=== PATIENT | female | born 1965 | race Caucasian/White ===

== ENCOUNTER 2020-01-27 15:40 | Emergency (ER) | payer MEDICAID, SELFPAY ==
[2020-01-27 15:42] VITALS: BP 161/91; PULSE 109; RESP 18; TEMP 36.2; O2SAT 100; BMI 31.3
--- NOTE | 2020-01-27 16:49 | ED.VIS.GEN ---
History of Present Illness Chief Complaint: Lower Extremity Injury Informant: Patient Narrative: Patient states that about 4 to 5 days ago she began to experience swelling of the left leg. She had a duplex ultrasound today that demonstrated a common femoral DVT. She was sent to the emergency room for a prescription of anticoagulant. She has never had DVT before. She denies any significant medical problems. She notes she has had a cough but recently tested negative for Covid. She has no known renal or liver issues. She has no known risk factors for DVT. Past Medical History - Allergies and Home Meds Allergies/Adverse Reactions: Allergies No Known Allergies Allergy (Verified 11/14/18 08:11) Primary Care Physician: Emi Brennan DO [Primary Care Provider] - Past Medical History: None Surgical History: noncontributory Smoking Status: Never smoker Drugs: None Review of Systems General: Denies: Chills, Fever, Sweats Eyes: Denies: Visual changes - bilaterally, Diplopia ENT: Denies: Rhinorrhea, Sore throat Cardiovascular: Denies: Chest pain, Palpitations Respiratory: Denies: Dyspnea, Cough, Dyspnea on exertion Gastrointestinal: Denies: Abdominal pain, Nausea, Vomiting, Diarrhea, Melena, Hematochezia Genitourinary: Denies: Dysuria, Hematuria, Frequency Musculoskeletal: Reports: Swelling, Extremity Pain. Denies: Back pain Skin: Denies: Rash, Wounds Neurological: Denies: Headache, Weakness, Numbness Physical Exam Vital Signs/Narrative: Vital Signs Temp Pulse Resp BP Pulse Ox 01/27/20 15:42 97.2 F L 109 H 18 161/91 H 100 Inital Vital Signs reviewed: Yes General: Well nourished, Well developed, No Acute Distress Head: Normocephalic, Atraumatic Eyes: Perrl, EOMI ENT: Moist mucous membranes, No rhinorrhea Neck: Supple, Nontender Cardiovascular: Regular rate, Regular rhythm, No murmurs Respiratory: No distress, CTA bilaterally, Chest nontender Abdomen: Soft, Nontender, Nondistended, Normal bowel sounds Back: Nontender, Normal Inspection Extremities: Tenderness, Edema - Of the left leg. No evidence of cerulea Rik's or albicans. Strong dorsalis pedis pulse. Toes are pink with excellent capillary refill Skin: Normal color, No rash Neurological: Alert, Oriented x3, Cranial nerves II-XII grossly intact, Normal Strength, Normal Sensation Psychological: Normal affect, Normal Mood Diagnostic/Tx/Re-eval - Medical Decision Making Patient will be started on Eliquis. She can follow-up in the office. ED Disposition - Plan for ED Patient: Disposition: Home or Assisted Living Diagnosis: Left leg DVT Instructions: ED DVT Prescriptions: Apixaban [Eliquis] 5 mg PO BID #74 tab Prescription Printed Referrals: Fast,Emi, DO [Primary Care Provider] - As soon as possible
== END 2020-01-27 17:18 | disposition home or self-care (01) ==
LOC: ED 17:18
PROVIDERS: Emergency Provider Emergency Medicine
DX: I82.402 Acute embolism and thrombosis of unspecified deep veins of left lower extremity (principal)
CPT/HCPCS: 99282

== ENCOUNTER → 2020-02-05 14:12 | Outpatient (CLI) | payer MEDICAID, SELFPAY ==
[2020-01-27 15:42] VITALS: BMI 31.3
--- NOTE | 2020-02-05 14:16 | US_ITS ---
STUDY: ULTRASOUND OF THE FEMALE PELVIS - COMPLETE REASON FOR EXAM: Female, 54 years old. HEAVY BLEEDING LMP: 01/02/2020 TECHNIQUE: Transabdominal TECHNICAL QUALITY: Adequate. COMPARISON: None. FINDINGS: The uterus is anteverted and is in a midline position. The uterus measures 9.5 x 7.8 x 6.2 cm. Normal uterine cervix. The endometrium measures 4.3 mm in thickness, and is hyperechoic. There is no demonstrated endometrial mass. 2 fibroids are seen measuring 4.0 and 4.1 cm greatest dimension. I.U.D. - The patient does not have an I.U.D. The right ovary is non-visualized. The left ovary is visualized. The left ovary measures 2.3 x 2.1 x 1.7 cm. There is no left ovarian cyst or ovarian mass. There is no visualized left adnexal mass or complex lesion. There is normal arterial and normal venous vascularity. There is no fluid in the cul-de-sac. Grossly normal bladder contour. US/Pelvic (Non ) IMPRESSION: At least 2 uterine fibroids approximately 4 cm greatest dimension. Electronically Signed: Adarsh Ortiz MD at 23:22 EST , Service support ,
[2020-02-05 17:20] LABS: Absolute Lymphocyte Count 1.77 X10^3/uL (0.83-4.51); Absolute Neutrophil Count 4.5 X10^3/uL (2.0-7.7); Basophil# 0.04 X10^3/uL; Basophil% 0.5 % (0-1); Eosinophil# 0.44 X10^3/uL; Eosinophils% 5.7 % (0-5); Hematocrit 26.8 % (37-47); Hemoglobin 6.9 g/dL (12.0-15.0); Lymphocyte # 1.77 X10^3/ul (4.0); Mean Corp Hgb Conc 25.7 g/dL (32-36); Mean Corpuscular Hgb 16.7 pg (27.0-32.0); Mean Corpuscular Volume 64.7 fL (81-99); Mean Platelet Vol. 10.5 fl (6.2-12.0); Monocyte# 0.82 X10^3/uL; Monocyte% 10.6 % (0-10); NRBC Flagged by Analyzer 0 % (0-5); Neutrophil # 4.54 X10^3/uL (2.7-7.7); POSITIVE COUNT YES; RBC Distribution Width CV 19.9 % (11.6-14.6); RBC Distribution Width SD 44.6 fl (35.1-43.9); Red Blood Count 4.14 M/mm3 (4.2-5.4); White Blood Count 7.7 K/mm3 (4.4-11.0)
[2020-02-05 17:37] LABS: Differential Indicated SCAN CRITERIA MET
[2020-02-05 17:45] LABS: ALB/GLOB Ratio 0.6 RATIO (0.9-2.4); AST(SGOT) 16 U/L (15-37); Alanine Aminotransfer ALT/SGPT 20 U/L (13-56); Albumin, Serum 2.8 g/dL (3.2-5.0); Alkaline Phosphatase 62 U/L (45-117); Anion Gap 6 (5-15); BUN 18 mg/dL (7-18); BUN/Creat Ratio 27.2 RATIO (10-20); Calcium,Total 8.9 mg/dL (8.5-10.1); Chloride 105 mmol/L (98-107); Creatinine, Serum 0.66 mg/dL (0.55-1.02); EST Glomerular Filtration Rate 100 mL/min (>60); Est Glom Filt Rate - Afr Amer 121 mL/min (>60); Glucose 84 mg/dL (74-106); Potassium 3.8 mmol/L (3.5-5.1); Protein, Total 7.8 g/dL (6.4-8.2); Sodium Level 138 mmol/L (136-145)
[2020-02-05 18:12] LABS: Anisocytosis 2+; Platelet Estimate MKD INC (ADEQ)
[2020-02-05 18:13] LABS: Hypochromasia 2+; Polychromasia RARE
[2020-02-05 18:14] LABS: Microcytosis 3+; Ovalocyte 1+
[2020-02-05 18:53] LABS: Platelet Count 755 K/mm3 (150-450)
[2020-02-06 12:53] LABS: Pathologist Review Reviewed
== END ==
PROVIDERS: Referring Provider Internal Medicine; Visit Provider Internal Medicine
DX: N92.0 Excessive and frequent menstruation with regular cycle (principal); I82.409 Acute embolism and thrombosis of unspecified deep veins of unspecified lower extremity
CPT/HCPCS: 36415; 76856; 80053; 81241; 85025

== ENCOUNTER 2020-02-10 10:05 | Emergency (ER) | payer MEDICAID, SELFPAY ==
[2020-02-10 10:06] VITALS: BP 164/97; PULSE 97; RESP 16; TEMP 36.4; O2SAT 100; BMI 30.4
--- NOTE | 2020-02-10 10:22 | VDLE_ITS ---
Reason For Study: Pain RIGHT LEFT GSV is normal. Acute deep vein thrombosis is noted in the CFV is compressible, spontaneous, phasic, left EIV, CFV, SFJ, FV, PopV, T/P Trunk, competent and demonstrates normal PTV, PeroV and GastrocV. augmentation. Acute superficial cade thrombosis is noted FV is compressible, spontaneous, phasic, in the left GSV from junction to mid thigh. competent and demonstrates normal augmentation. POP V is compressible, spontaneous, phasic, competent and demonstrates normal augmentation. T/P Trunk is compressible. PTV is compressible. RT PerV is compressible. Procedure This is a venous duplex using B-mode, color flow and spectral Doppler. Exam performed portable in ED. A preliminary report was called and/or faxed to [facility]. Interpretation Summary There is no evidence of right lower extremity deep vein thrombosis. Right great saphenous vein appears patent and compressible segmentally. Acute deep venous thrombosis left external iliac, common femoral, saphenofemoral junction, femoral, popliteal, tibioperoneal trunk, posterior tibial, peroneal, and gastrocnemius veins. Superficial thrombophlebitis left great saphenous vein Ordering Physician: Richard Pond Referring Physician: Emi Brennan D.O. Performed By: Jessy Fairbanks RVT
[2020-02-10 10:57] LABS: Absolute Lymphocyte Count 2.32 X10^3/uL (0.83-4.51); Absolute Neutrophil Count 4.4 X10^3/uL (2.0-7.7); Basophil# 0.04 X10^3/uL; Basophil% 0.5 % (0-1); Eosinophil# 0.34 X10^3/uL; Eosinophils% 4.3 % (0-5); Hematocrit 27.1 % (37-47); Hemoglobin 7.1 g/dL (12.0-15.0); Lymphocyte # 2.32 X10^3/ul (4.0); Mean Corp Hgb Conc 26.2 g/dL (32-36); Mean Corpuscular Hgb 16.8 pg (27.0-32.0); Mean Corpuscular Volume 64.1 fL (81-99); Mean Platelet Vol. 10.2 fl (6.2-12.0); Monocyte# 0.82 X10^3/uL; Monocyte% 10.3 % (0-10); NRBC Flagged by Analyzer 0.3 % (0-5); Neutrophil # 4.43 X10^3/uL (2.7-7.7); Neutrophil % 55.4 % (47-70); Platelet Count 738 K/mm3 (150-450); RBC Distribution Width CV 19.9 % (11.6-14.6); RBC Distribution Width SD 43.7 fl (35.1-43.9); Red Blood Count 4.23 M/mm3 (4.2-5.4)
[2020-02-10 11:01] LABS: International Normalized Ratio 1.4; Prothrombin Time (Protime)PT. 16.4 SECONDS (11.7-14.9)
[2020-02-10 11:03] LABS: Partial Thromboplast Time 29.4 Seconds (24.1-36.2)
[2020-02-10 11:09] LABS: Anion Gap 7 (5-15); BUN 13 mg/dL (7-18); BUN/Creat Ratio 16.1 RATIO (10-20); Calcium,Total 9.6 mg/dL (8.5-10.1); Chloride 107 mmol/L (98-107); Creatinine, Serum 0.81 mg/dL (0.55-1.02); EST Glomerular Filtration Rate 79 mL/min (>60); Est Glom Filt Rate - Afr Amer 96 mL/min (>60); Estimated Creatinine Clearance 87.85 ml/min; Glucose 116 mg/dL (74-106); Potassium 4.1 mmol/L (3.5-5.1); Sodium Level 140 mmol/L (136-145)
[2020-02-10 12:06] VITALS: BP 110/84; PULSE 93; RESP 16; O2SAT 100
--- NOTE | 2020-02-10 12:09 | ED.VISSUMM ---
- ER Visit Summary Date of Service: 02/10/20 Chief Complaint: Anemia History of Present Illness: The patient is a [address] [facility] She is a poor informant. She reports that she has vaginal bleeding. However, she is unsure when this started. She reports that currently she is changing a pad every 1-2 hours and and does not soak. She has a history of a DVT and is on Eliquis. Her last dose was this morning. Review of systems: General: No fever, chills, cold sweats. Cardiovascular: No chest pain, palpitations. Respiratory: No cough, shortness of breath, dyspnea on exertion. Gastrointestinal: No abdominal pain, nausea, vomiting, diarrhea, melena, or hematochezia. Genitourinary: No dysuria, frequency, hematuria. Skin: No rash. Neuro: No headache, numbness, weakness. Physical Examination: Vitals: Stable. Afebrile. General: Well-nourished and well-developed. Head: Normocephalic atraumatic. Neck: Supple, no lymphadenopathy. No JVD. Nontender. Cardiovascular: Regular rate and rhythm. No murmurs. Respiratory: No respiratory distress. Clear to auscultation bilaterally. Abdominal: Soft, nontender, nondistended, normal bowel sounds. No guarding, rebound, or peritoneal signs. Back: Nontender. Extremities: Nontender, no edema. Skin: Normal color, no rash. Neurologic: Alert and oriented ?3. Cranial nerves II through XII are intact. Normal strength and sensation. Psych: Normal affect. Test Results: INR is 1.4 with PTT of 29.4. Chem-7 shows a glucose 116. CBC shows a hemoglobin of 7.1 (her hemoglobin 6.92 days ago and no other old for comparison), platelets are 738. Chem-7 shows glucose 116. Bilateral lower extremity Doppler ultrasound show her to have an acute DVT from the thigh to the ankle on the left. Emergency Department Course and Treatment: Patient is resting comfortably and feels well. Treatment Plan: Patient was discussed with the hospitalist. At this time they do not think that she needs to be transfused or admitted. She was discussed with Dr. Gaby Waldrop who states that she will see in the office today. She will be placed on Aygestin 5 mg p.o. 4 times daily. Return to the emergency department for any worsening symptoms. Disposition: To home in improved and stable condition. Impression: 1. Anemia. 2. Vaginal bleeding on Eliquis. 3. DVT on left. This note was generated with [employer] dictation software. It may contain incorrect words, spelling, and punctuation that were not noted in review of the chart prior to signing ED Disposition - Plan for ED Patient: Disposition: Home or Assisted Living Instructions: ED FIBROIDS Prescriptions: Norethindrone [Aygestin] 5 mg PO 4X/DAY 3 Days #12 tab Prescription Printed Referrals: Gaby Waldrop MD [STAFF PHYSICIAN] - 02/10/20
[2020-02-10 12:26] VITALS: BP 110/72; PULSE 79; RESP 22; O2SAT 97
--- NOTE | 2020-02-10 12:27 | ED.RN ---
THIS NURSE REVIEWED D/C INSTRUCTIONS WITH PT. PT VERBALIZED UNDERSTANDING OF INSTRUCTIONS. IV D/C. IV CATHETER INTACT. PT TOLERATED WELL. PT DENIES FURTHER NEEDS OR QUESTIONS AT THIS TIME. PT CONTACTING HER RIDE.
== END 2020-02-10 12:29 | disposition home or self-care (01) ==
PROVIDERS: Emergency Provider Emergency Medicine
DX: D64.9 Anemia, unspecified (principal); N93.9 Abnormal uterine and vaginal bleeding, unspecified; Z79.01 Long term (current) use of anticoagulants; Z86.718 Personal history of other venous thrombosis and embolism
CPT/HCPCS: 80048; 85025; 85610; 85730; 86850; 86900; 86901; 86920; 86922; 93970; 99283; A4216

== ENCOUNTER 2020-05-08 19:07 | Emergency (ER) | payer MEDICAID, SELFPAY ==
[2020-05-08 19:07] VITALS: BP 151/64; PULSE 85; RESP 16; TEMP 36.2; O2SAT 100; BMI 33.5
--- NOTE | 2020-05-08 19:52 | NURSING ---
Patient tolerated pelvic exam well with distraction by this nurse while provider completed evaluation. Two pads given to patient, upon completion.
--- NOTE | 2020-05-08 20:06 | ED.DCSUM_ITS ---
History of Present Illness Chief Complaint: Vag Bleeding Informant: Patient Issue: Vaginal bleeding, Passing clots Narrative: Patient is a 54-year-old female with history of DVT and abnormal vaginal bleeding presenting with heavy vaginal bleeding. Patient states that she was recently taken off of a white pill as well as Eliquis. Patient was on Eliquis for DVT. She followed up with hematology and the DVT had resolved so she was taken off of it. She states that she has an enlarged uterus and gets heavy vaginal bleeding. She was taken off these medications 1 week ago. 3 days ago she started having bright heavy vaginal bleeding. The patient brought in shows that the medication was likely Aygestin. She tried to get a hold of her REHABILITATION MANAGER, about getting a refill of the Aygestin to help with her heavy vaginal bleeding but was unsuccessful so she came to the ER. Patient denies any lightheadedness, chest pain, abdominal pain or pelvic cramping. She states she is wearing 2 pads at a time. She states she is passing clots of blood. She denies any urinary symptoms. No other complaints at this time. Past Medical History - Allergies and Home Meds Allergies/Adverse Reactions: Allergies No Known Allergies Allergy (Verified 05/08/20 19:10) Primary Care Physician: Care Physician,No Primary [NON-STAFF] - Past Medical History: - - Depression, GERD, history of DVT, irregular vaginal bleeding Surgical History: noncontributory Lives: Spouse/ Significant Other Smoking Status: Former smoker Review of Systems General: Denies: Chills, Fever, Sweats Eyes: Denies: Visual changes - bilaterally, Diplopia ENT: Denies: Rhinorrhea, Sore throat Cardiovascular: Denies: Chest pain, Palpitations Respiratory: Denies: Dyspnea, Cough, Dyspnea on exertion Gastrointestinal: Denies: Abdominal pain, Nausea, Vomiting, Diarrhea, Melena, Hematochezia Genitourinary: Reports: - - Heavy vaginal bleeding. Denies: Dysuria, Hematuria, Frequency Musculoskeletal: Denies: Back pain, Extremity Pain Skin: Denies: Rash, Wounds Neurological: Denies: Headache, Weakness, Numbness Physical Exam Vital Signs/Narrative: Vital Signs Temp Pulse Resp BP Pulse Ox 05/08/20 19:07 97.2 F L 85 16 151/64 H 100 Inital Vital Signs reviewed: Yes General: Well nourished, Well developed Head: Normocephalic, Atraumatic Eyes: Perrl, EOMI. Negative for: Pale conjunctiva ENT: Moist mucous membranes, No rhinorrhea Neck: Supple, Nontender Cardiovascular: Regular rate, Regular rhythm, No murmurs Respiratory: No distress, CTA bilaterally, Chest nontender Abdomen: Soft, Nontender, Nondistended, Normal bowel sounds : Speculum exam: Normal external genitalia, No vaginal lesions, No vaginal discharge, Normal cervix, Mild active bleeding, Small clots Back: Nontender, Normal Inspection Extremities: Nontender, No edema Skin: Normal color, No rash. Negative for: Pallor Neurological: Alert, Oriented x3, Cranial nerves II-XII grossly intact, Normal Strength, Normal Sensation Psychological: Normal affect Diagnostic/Tx/Re-eval - Medical Decision/Diagnostic Studies Patient is evaluated for irregular vaginal bleeding. Patient is requesting Aygestin which she is taking in the past to help with her abnormal vaginal bleeding. She denies any symptoms consistent with anemia. She denies any significant abdominal pain. She has no other complaints. She has normal vital signs is ambulating easily in the emergency room. I do not think checking lab work is indicated at this time. Spoke to gynecology on-call, Dr. Geronimo, who is comfortable with starting her on a short course of Aygestin. This is a progesterone only medication so this should not increase her risk of DVTs as she is currently off Eliquis. Patient will follow up with her silo operator and phone technician. Patient is counseled on signs and symptoms requiring return to the emergency room. Patient verbalizes agreement and understand this plan. Patient discharged home in stable and improved condition. ED Disposition - Plan for ED Patient: Disposition: Home or Assisted Living Diagnosis: Abnormal vaginal bleeding Instructions: ED Dysfunctional Uterine Bleeding Prescriptions: Norethindrone [Aygestin] 5 mg PO BID 5 Days #12 tab Prescription Printed Referrals: Toshia Nicole DO [Primary Care Provider] -
[2020-05-08 20:23] VITALS: BP 132/78; PULSE 72; RESP 19; TEMP 37.1; O2SAT 98
== END 2020-05-08 20:24 | disposition home or self-care (01) ==
PROVIDERS: Emergency Provider Emergency Medicine; PCP Student in an Organized Health Care Education/Training Program
DX: N93.9 Abnormal uterine and vaginal bleeding, unspecified (principal); Z86.718 Personal history of other venous thrombosis and embolism; Z87.891 Personal history of nicotine dependence; Z79.02 Long term (current) use of antithrombotics/antiplatelets
CPT/HCPCS: 99282

== ENCOUNTER 2020-05-17 20:54 | Emergency (ER) | payer MEDICAID, SELFPAY ==
[2020-05-17 20:55] VITALS: BP 141/94; PULSE 100; RESP 18; TEMP 36.4; O2SAT 98; BMI 33.2
--- NOTE | 2020-05-17 21:41 | ED.VISSUMM ---
- ER Visit Summary Date of Service: 05/17/20 Chief Complaint: Vaginal bleeding History of Present Illness: The patient is a 54 F presenting with vaginal bleeding. Patient states she has history of heavy vaginal periods. She was seen in the ED 9 days ago. She states at that time she was started on a white pill. She states that she has been given this in the past to stop her periods. She was diagnosed with a DVT several months ago and was on Eliquis. When she was on Eliquis she was having increased heavy vaginal bleeding. She was taken off Eliquis due to heavy vaginal bleeding. She states when she has heavy vaginal bleeding she needs the white pill. She states she was given this last week in the emergency department and not has now run out of this medication and has now started bleeding again. She denies dizziness or syncope. Denies abdominal pain. Denies other complaints. Physical Examination: Vitals are stable. Patient is afebrile. Alert no acute distress. HEENT exam is unremarkable. Neck is supple. Lungs are clear and equal bilaterally. Heart is regular rate and rhythm. Abdomen is soft nontender nondistended. No guarding or rebound Pelvic: Small amount of blood in vaginal vault, cleared with cotton swab. Extremities are unremarkable. Skin is warm and dry. Remainder of exam is unremarkable. Emergency Department Course and Treatment: CBC shows white count 12, hemoglobin 9.1. Orthostatics negative. hCG negative. Discussed with Dr. Geronimo. Patient has a scheduled appointment on Monday with AIR DIRECTOR in [place] to discuss possible hysterectomy. She was started back on Aygestin to get her through until this appointment. She is advised signs and symptoms for which to return to the ED. Disposition: Discharge home Impression: Dysfunctional uterine bleeding This note was generated with [employer] dictation software. It may contain incorrect words, spelling, and punctuation that were not noted in review of the chart prior to signing ED Disposition - Plan for ED Patient: Instructions: ED Dysfunctional Uterine Bleeding Prescriptions: Norethindrone [Aygestin] 5 mg PO BID 5 Days #12 tab Prescription Printed Referrals: Toshia Nicole DO [Primary Care Provider] -
[2020-05-17 21:45] LABS: Absolute Lymphocyte Count 2.09 X10^3/uL (0.83-4.51); Basophil# 0.11 X10^3/uL; Basophil% 0.9 % (0-1); Eosinophil# 0.34 X10^3/uL; Eosinophils% 2.8 % (0-5); Hematocrit 33.8 % (37-47); Hemoglobin 9.1 g/dL (12.0-15.0); Lymphocyte # 2.09 X10^3/ul (4.0); Lymphocyte % 17.4 % (19-41); Mean Corp Hgb Conc 26.9 g/dL (32-36); Mean Corpuscular Hgb 18.6 pg (27.0-32.0); Mean Corpuscular Volume 69.1 fL (81-99); Mean Platelet Vol. 9.7 fl (6.2-12.0); Monocyte# 1.36 X10^3/uL; Monocyte% 11.3 % (0-10); NRBC Flagged by Analyzer 0 % (0-5); Neutrophil # 8.03 X10^3/uL (2.7-7.7); Neutrophil % 66.9 % (47-70); POSITIVE MORPHOLOGY YES; Platelet Count 480 K/mm3 (150-450); RBC Distribution Width SD 70.1 fl (35.1-43.9); Red Blood Count 4.89 M/mm3 (4.2-5.4)
[2020-05-17 21:52] LABS: Differential Indicated SCAN CRITERIA MET
[2020-05-17 21:56] LABS: Internal QC Validated? YES +Cl - CLEAR BKGD; Pregnancy, Serum, hCG Quali. NEGATIVE Negative
[2020-05-17 22:12] LABS: Anisocytosis 2+
[2020-05-17 22:17] VITALS: BP 114/69; BP 118/80; BP 132/85; PULSE 115; PULSE 99
--- NOTE | 2020-05-17 22:23 | ED.DEP ---
ED Disposition - Plan for ED Patient: Instructions: ED Dysfunctional Uterine Bleeding Prescriptions: Norethindrone [Aygestin] 5 mg PO BID 5 Days #12 tab Prescription Printed Referrals: Toshia Nicole DO [Primary Care Provider] -
[2020-05-17 22:36] VITALS: BP 118/65; PULSE 99; RESP 18; O2SAT 100
--- NOTE | 2020-05-17 22:36 | ED.RN ---
ATTEMPTED TO FILL MEDS TO BEDS, WE DO NOT HAVE THIS RX AVAILABLE. PT AWARE AND WILL FILL IT IN AM.
== END 2020-05-17 22:37 | disposition home or self-care (01) ==
LOC: ED 22:31
PROVIDERS: Emergency Provider Emergency Medicine; PCP Student in an Organized Health Care Education/Training Program
DX: N93.8 Other specified abnormal uterine and vaginal bleeding (principal); Z86.718 Personal history of other venous thrombosis and embolism
CPT/HCPCS: 84703; 85025; 99283

== ENCOUNTER → 2020-06-25 14:48 | Outpatient (CLI) | payer MEDICAID, SELFPAY ==
--- NOTE | 2020-06-25 14:50 | VDLE_ITS ---
Reason For Study: DVT RIGHT LEFT GSV is normal. Vein wall thickening is noted in the EIV, CFV is compressible, spontaneous, phasic, CFV, and FV. competent and demonstrates normal POP V, T/P Trunk and Gastroc V are partially augmentation. compressible. FV is compressible, spontaneous, phasic, PTV, Peroneal V, and GSV are now competent and demonstrates normal compressible. Improvement from previous study augmentation. done 02/10/2020. POP V is compressible, spontaneous, phasic, competent and demonstrates normal augmentation. T/P Trunk is compressible. PTV is compressible. RT PerV is compressible. Procedure This is a venous duplex using B-mode, color flow and spectral Doppler. The exam was diagnostic. A preliminary report was called and/or faxed to Lov[facility] at Dr. Quinteros's. VL/Venous Duplex US - Shaan Extrem Interpretation Summary There is no evidence of right lower extremity deep vein thrombosis. Chronic thr ombotic changes left external iliac, common femoral, femoral, popliteal, tibioperoneal trunk and gas trocnemius veins Patent, compressible left posterior tibial and peroneal veins. Patent and compressible bilateral great saphenous veins Improvement since 02/10/20 Ordering Physician: Esteban Quinteros Performed By: Masood Henson RVT
== END ==
PROVIDERS: Referring Provider Internal Medicine Hematology & Oncology; Visit Provider Internal Medicine Hematology & Oncology
DX: I82.409 Acute embolism and thrombosis of unspecified deep veins of unspecified lower extremity (principal)
CPT/HCPCS: 93970

== ENCOUNTER → 2020-09-18 09:55 | Outpatient (CLI) | payer MEDICAID, SELFPAY ==
--- NOTE | 2020-09-18 09:58 | VDLE_ITS ---
Reason For Study: Leg swelling RIGHT LEFT GSV is normal. CFV, FV, Pop V, T/P Trunk are partially CFV is compressible, spontaneous, phasic, compressible with bright intraluminal echoes competent and demonstrates normal consistent with Chronic DVT. augmentation. PTV, Peroneal V, and GSV are compressible. FV is compressible, spontaneous, phasic, Compared to previous study done 06/25/2020. competent and demonstrates normal augmentation. POP V is compressible, spontaneous, phasic, competent and demonstrates normal augmentation. T/P Trunk is compressible. PTV is compressible. RT PerV is compressible. Procedure This is a venous duplex using B-mode, color flow and spectral Doppler. Exam performed in department. A preliminary report was called and/or faxed to [facility]. VL/Venous Duplex US - Shaan Extrem Interpretation Summary Chronic venous changes are noted in the left common femoral vein, femoral vein, popliteal vein, and tibio-peroneal trunk, which are partially compressible and demonstrate bright i ntraluminal echogenicity.The left posterior tibial vein and peroneal vein are patent and co mpressible. Deep veins of the right lower extremity are patent and compressible segmentally. The re is no evidence of right lower extremity deep vein thrombosis. Valvular competence appears intact within the proximal deep venous system on the right . The great saphenous veins appear bilaterally patent and compressible segmentally. Ordering Physician: Esteban Quinteros Performed By: Jessy Fairbanks RVT
== END ==
PROVIDERS: Referring Provider Internal Medicine Hematology & Oncology; Visit Provider Internal Medicine Hematology & Oncology
DX: R60.0 Localized edema (principal); I82.409 Acute embolism and thrombosis of unspecified deep veins of unspecified lower extremity
CPT/HCPCS: 93970

== ENCOUNTER → 2022-04-20 | Outpatient (CLI) | payer MEDICAID, SELFPAY ==
[2022-04-20 11:34] LABS: Hematocrit 45.1 % (37-47); Hemoglobin 14.7 g/dL (12.0-15.0); Mean Corp Hgb Conc 32.6 g/dL (32-36); Mean Corpuscular Hgb 28.2 pg (27.0-32.0); Mean Corpuscular Volume 86.4 fL (81-99); Mean Platelet Vol. 10.8 fl (6.2-12.0); Platelet Count 229 K/mm3 (150-450); RBC Distribution Width CV 13.7 % (11.6-14.6); RBC Distribution Width SD 42.4 fl (35.1-43.9); Red Blood Count 5.22 M/mm3 (4.2-5.4); White Blood Count 6.5 K/mm3 (4.4-11.0)
[2022-04-20 12:10] LABS: ALB/GLOB Ratio 0.8 RATIO (0.9-2.4); AST(SGOT) 40 U/L (15-37); Alanine Aminotransfer ALT/SGPT 31 U/L (13-56); Albumin, Serum 3.7 g/dL (3.2-5.0); Alkaline Phosphatase 103 U/L (45-117); Anion Gap 6 (5-15); BUN 11 mg/dL (7-18); BUN/Creat Ratio 13.7 RATIO (10-20); Calcium,Total 9.5 mg/dL (8.5-10.1); Chloride 106 mmol/L (98-107); EST Glomerular Filtration Rate 79 mL/min (>60); Est Glom Filt Rate - Afr Amer 96 mL/min (>60); Globulin 4.9 g/dL (2.2-4.2); Glucose 97 mg/dL (74-106); Potassium 4.9 mmol/L (3.5-5.1); Protein, Total 8.6 g/dL (6.4-8.2); Sodium Level 141 mmol/L (136-145)
== END | disposition home or self-care (01) ==
LOC: LAB 11:17
PROVIDERS: Visit Provider Nurse Practitioner Family
DX: M19.90 Unspecified osteoarthritis, unspecified site (principal); Z86.718 Personal history of other venous thrombosis and embolism
CPT/HCPCS: 36415; 80053; 85027

== ENCOUNTER → 2022-10-26 | Outpatient (CLI) | payer MEDICAID, SELFPAY ==
--- NOTE | 2022-10-26 14:46 | BI_ITS ---
MAMMOGRAPHY - BILATERAL SCREENING REASON FOR EXAM: Female, 57 years old. Routine annual screening examination. PERTINENT HISTORY: Non-contributory. TECHNIQUE: Digital bilateral breast [place] (3D mammographic acquisition) in the CC and MLO projections. 2-D mediolateral oblique (MLO) and craniocaudad (CC) views of both breasts were obtained. CAD: Full Field Digital Mammography with Computer Added Detection was performed. COMPARISON: None. Baseline examination. FINDINGS: Breast Composition: The breasts are heterogeneously dense, which may obscure small masses. There are no dominant masses or suspicious calcifications. No other significant abnormalities are identified. BI/SCRN MAMM (CAD)W/[place] BILAT IMPRESSION: Negative screening mammogram. Yearly followup mammogram recommended. (A) ASSESSMENT CATEGORY: BIRADS Category 1: Negative. A letter regarding these results will be sent to the patient by the facility within 30 days. Approximately 10% of breast cancers are not detected by mammography. A normal mammogram should not delay biopsy of a clinically suspicious abnormality. [id number] Electronically Signed: Eddy Roy MD at 15:30 EDT ,
== END | disposition home or self-care (01) ==
LOC: OPBI 14:44
PROVIDERS: Referring Provider Nurse Practitioner Family; Visit Provider Nurse Practitioner Family
DX: Z12.31 Encounter for screening mammogram for malignant neoplasm of breast (principal)
CPT/HCPCS: 77063; 77067

== ENCOUNTER → 2023-09-14 | Outpatient (CLI) | payer MEDICAID, SELFPAY ==
[2023-09-14 17:18] LABS: Absolute Lymphocyte Count 1.18 X10^3/uL (0.83-4.51); Absolute Neutrophil Count 2.1 X10^3/uL (2.0-7.7); Basophil# 0.02 X10^3/uL; Basophil% 0.5 % (0-1); Eosinophil# 0.06 X10^3/uL; Eosinophils% 1.5 % (0-5); Hematocrit 39.1 % (37-47); Hemoglobin 12.9 g/dL (12.0-15.0); Lymphocyte # 1.18 X10^3/ul (0.83-4.51); Mean Corpuscular Hgb 28.6 pg (27.0-32.0); Mean Corpuscular Volume 86.7 fL (81-99); Mean Platelet Vol. 11.4 fl (6.2-12.0); Monocyte# 0.57 X10^3/uL; Monocyte% 14.5 % (0-10); NRBC Flagged by Analyzer 0 % (0-5); Neutrophil # 2.09 X10^3/uL (2.7-7.7); Neutrophil % 53.2 % (47-70); Platelet Count 204 K/mm3 (150-450); RBC Distribution Width CV 13.5 % (11.6-14.6); RBC Distribution Width SD 42.7 fl (35.1-43.9); Red Blood Count 4.51 M/mm3 (4.2-5.4); White Blood Count 3.9 K/mm3 (4.4-11.0)
[2023-09-14 17:56] LABS: Hemoglobin A1c 5.8 % (3.8-5.6)
[2023-09-14 18:16] LABS: ALB/GLOB Ratio 0.8 RATIO (0.9-2.4); AST(SGOT) 30 U/L (15-37); Alanine Aminotransfer ALT/SGPT 28 U/L (13-56); Albumin, Serum 3.3 g/dL (3.2-5.0); Alkaline Phosphatase 80 U/L (45-117); Anion Gap 10 (5-15); BUN 13 mg/dL (7-18); BUN/Creat Ratio 15.9 RATIO (10-20); Calcium,Total 8.9 mg/dL (8.5-10.1); Chloride 104 mmol/L (98-107); Creatinine, Serum 0.82 mg/dL (0.55-1.02); EST Glomerular Filtration Rate 77 mL/min (>60); Est Glom Filt Rate - Afr Amer 93 mL/min (>60); Globulin 4.2 g/dL (2.2-4.2); Glucose 111 mg/dL (74-106); Potassium 3.5 mmol/L (3.5-5.1); Protein, Total 7.5 g/dL (6.4-8.2); Sodium Level 139 mmol/L (136-145); Thyroid Stim Hormone (TSH) 1.33 uIU/mL (0.358-3.74)
[2023-09-14 18:20] LABS: Microalbumin,Random Urine 26.1 mg/L (NO RANGE EST.)
== END | disposition home or self-care (01) ==
LOC: VSLAB 13:04
PROVIDERS: Visit Provider Nurse Practitioner Family
DX: I10 Essential (primary) hypertension (principal)
CPT/HCPCS: 36415; 80053; 82043; 83036; 84443; 85025

== ENCOUNTER → 2024-04-17 | Outpatient (CLI) | payer MEDICAID, SELFPAY ==
--- NOTE | 2024-04-17 08:19 | BI_ITS ---
PROCEDURE: SCRN MAMM (CAD)W/[place] BILAT REASON FOR EXAM: F, Age 58 y/o, no family history. TECHNIQUE: Bilateral screening digital breast tomosynthesis with 2D and 3D images. Computer aided detection. COMPARISON: Prior exam(s) dating back to prior mammogram dated October 26, 2022.. FINDINGS: The breasts are heterogeneously dense which may obscure small masses. Stable examination. No suspicious masses, areas of developing architectural distortion, or suspicious calcifications. BI/SCRN MAMM (CAD)W/[place] BILAT IMPRESSION: BI-RADS 1: NEGATIVE. RECOMMEND ANNUAL MAMMOGRAPHIC SCREENING. Follow-up code: Routine Follow-up The patient will be notified of the results by letter. Reading Location: [place] [id number]
== END | disposition home or self-care (01) ==
LOC: OPBI 08:17
PROVIDERS: Referring Provider Nurse Practitioner Family; Visit Provider Nurse Practitioner Family
DX: Z12.31 Encounter for screening mammogram for malignant neoplasm of breast (principal)
CPT/HCPCS: 77063; 77067

== ENCOUNTER 2024-06-04 09:14 | Outpatient (RCR) | payer MEDICAID, SELFPAY | END 2024-06-17 23:59 | LOC: NS 09:14 | PROVIDERS: Referring Provider Nurse Practitioner Family; Visit Provider Nurse Practitioner Family | DX: Z71.3 Dietary counseling and surveillance (principal); R73.03 Prediabetes; E66.9 Obesity, unspecified; Z68.36 Body mass index [BMI] 36.0-36.9, adult | CPT/HCPCS: 97802 ==

== ENCOUNTER 2024-07-01 08:17 | Outpatient (RCR) | payer MEDICAID, SELFPAY | END 2024-07-17 23:59 | LOC: NS 08:17 | PROVIDERS: Referring Provider Nurse Practitioner Family; Visit Provider Nurse Practitioner Family | DX: Z71.3 Dietary counseling and surveillance (principal); R73.03 Prediabetes; Z68.36 Body mass index [BMI] 36.0-36.9, adult | CPT/HCPCS: 97803 ==

== ENCOUNTER → 2024-07-17 | Outpatient (CLI) | payer MEDICAID, SELFPAY ==
[2024-07-17 13:02] LABS: Absolute Neutrophil Count 2.9 X10^3/uL (2.0-7.7); Basophil# 0.05 X10^3/uL; Basophil% 0.9 % (0-1); Eosinophil# 0.19 X10^3/uL; Eosinophils% 3.6 % (0-5); Hemoglobin 12.9 g/dL (12.0-15.0); Lymphocyte % 28.2 % (19-41); Mean Corp Hgb Conc 33.1 g/dL (32-36); Mean Corpuscular Hgb 28.7 pg (27.0-32.0); Mean Corpuscular Volume 86.9 fL (81-99); Mean Platelet Vol. 10.9 fl (6.2-12.0); Monocyte# 0.64 X10^3/uL; Monocyte% 12.1 % (0-10); NRBC Flagged by Analyzer 0 % (0-5); Neutrophil # 2.91 X10^3/uL (2.7-7.7); Neutrophil % 54.8 % (47-70); Platelet Count 263 K/mm3 (150-450); RBC Distribution Width CV 13.5 % (11.6-14.6); RBC Distribution Width SD 42.4 fl (35.1-43.9); Red Blood Count 4.49 M/mm3 (4.2-5.4); White Blood Count 5.3 K/mm3 (4.4-11.0)
[2024-07-17 13:19] LABS: Hemoglobin A1c 6.1 % (<=5.6)
[2024-07-17 13:49] LABS: ALB/GLOB Ratio 1.1 RATIO (0.9-2.4); AST(SGOT) 25 U/L (<=31); Alanine Aminotransfer ALT/SGPT 24 U/L (<=34); Albumin, Serum 3.9 g/dL (3.5-5.0); Alkaline Phosphatase 93 U/L (35-104); Anion Gap 12 (5-15); BUN 16 mg/dL (4-19); BUN/Creat Ratio 21.1 RATIO (10-20); Calcium,Total 9.5 mg/dL (7.6-11.0); Carbon Dioxide 24.3 mmol/L (21.0-32.0); Chloride 104 mmol/L (98-108); Creatinine, Serum 0.75 mg/dL (0.70-1.20); EST Glomerular Filtration Rate 93 (>60); Globulin 3.7 g/dL (2.2-4.2); Glucose 91 mg/dL (70-99); Potassium 3.7 mmol/L (3.3-5.1); Protein, Total 7.6 g/dL (5.9-8.4); Sodium Level 140 mmol/L (133-145); Total Bilirubin 0.58 mg/dL (0.00-1.30)
== END | disposition home or self-care (01) ==
LOC: VSLAB 08:55
PROVIDERS: PCP Nurse Practitioner Family; Visit Provider Nurse Practitioner Family
DX: I10 Essential (primary) hypertension (principal); R73.03 Prediabetes
CPT/HCPCS: 36415; 80053; 83036; 84443; 85025

== ENCOUNTER → 2024-10-30 | Outpatient (CLI) | payer MEDICAID, SELFPAY ==
--- NOTE | 2024-10-30 11:20 | RAD_ITS ---
PROCEDURE: KNEE 4 OR MORE VIEWS 10/30/2024 REASON FOR EXAM: PAIN TECHNIQUE: KNEE 4 OR MORE VIEWS Laterality: Left COMPARISON: None FINDINGS: Bones: Mild diffuse osteopenia of visualized bones. Joints: Normal alignment. Mild degenerative changes. Effusion: Small joint effusion. Soft tissues: Mild soft tissue swelling overlying the joint. RAD/Knee 4 or More Views IMPRESSION: Mild degenerative changes of visualized joint. No acute fracture or dislocatio n. If there is ongoing clinical suspicion for fracture consider follow-up imaging in 7-10 days. Reading Location: [id number]
== END | disposition home or self-care (01) ==
LOC: RAD 11:14
PROVIDERS: PCP Nurse Practitioner Family; Referring Provider Nurse Practitioner Family; Visit Provider Nurse Practitioner Family
DX: M25.562 Pain in left knee (principal)
CPT/HCPCS: 73564

== ENCOUNTER → 2025-01-21 | Outpatient (CLI) | payer MEDICAID, SELFPAY ==
[2025-01-21 16:52] LABS: Hematocrit 43.1 % (37-47); Hemoglobin 13.7 g/dL (12.0-15.0); Immature Granulocytes Count 0.020 X10^3/uL (0.0-0.0); Mean Corp Hgb Conc 31.8 g/dL (32-36); Mean Corpuscular Volume 87.4 fL (81-99); Mean Platelet Vol. 11.4 fl (6.2-12.0); NRBC Flagged by Analyzer 0 % (0-5); Platelet Count 276 K/mm3 (150-450); RBC Distribution Width CV 13.8 % (11.6-14.6); RBC Distribution Width SD 44.7 fl (35.1-43.9); Red Blood Count 4.93 M/mm3 (4.2-5.4); White Blood Count 6.3 K/mm3 (4.4-11.0)
[2025-01-21 17:28] LABS: AST(SGOT) 22 U/L (<=31); Alanine Aminotransfer ALT/SGPT 24 U/L (<=34); Albumin, Serum 4.3 g/dL (3.5-5.0); Alkaline Phosphatase 90 U/L (35-104); Anion Gap 12 (5-15); BUN 16 mg/dL (4-19); BUN/Creat Ratio 25.3 RATIO (10-20); Calcium,Total 9.7 mg/dL (7.6-11.0); Carbon Dioxide 26.6 mmol/L (21.0-32.0); Chloride 100 mmol/L (98-108); Cholesterol 183 mg/dL (<=200); Globulin 3.7 g/dL (2.2-4.2); Glucose 87 mg/dL (70-99); Low Density Lipoprotein Calc. 108 mg/dL; Potassium 4.1 mmol/L (3.3-5.1); Triglycerides 133 mg/dL; Very Low Density Lipoprotein 27 mg/dL (5-40); cholesterol:hdl ratio screen 3.59
== END | disposition home or self-care (01) ==
LOC: VSLAB 11:15
PROVIDERS: PCP Nurse Practitioner Family; Referring Provider Nurse Practitioner Family; Visit Provider Nurse Practitioner Family
DX: I10 Essential (primary) hypertension (principal); R73.03 Prediabetes
CPT/HCPCS: 36415; 80053; 80061; 83036; 85025